=== PATIENT | female | born 1985 | race African-American/Black ===

== ENCOUNTER 2019-03-05 23:59 | Emergency (ER) | payer MEDICAID, OTHER ==
[~2019-03-05] VITALS: Ht 154.9 cm; Wt 52.2 kg
[2019-03-06 03:51] LABS: Basophils # (auto) 0.1 uL; Eosinophils # (auto) 0.2 uL; Hematocrit 32.1 % (36.0-46.0); Hemoglobin 10.6 g/dL (12.2-16.2); Lymphocytes % (auto) 38.1 % (10.0-50.0); Mean Corpuscular Hemoglobin 28.8 pg (28.0-32.0); Mean Corpuscular Hgb Conc. 32.9 g/dL (32.0-36.0); Mean Corpuscular Volume 87.5 fL (80.0-100.0); Monocytes # (auto) 0.5 uL; Monocytes % (auto) 9.7 % (0.0-12.0); Neutrophils # (auto) 2.5 uL; Neutrophils % (auto) 48.2 % (37.0-80.0); Platelet Count (auto) 377 10^3/uL (140-450); Red Blood Cells 3.67 10^6/uL (4.0-5.20); Red Cell Distribution Width 13.4 % (11.8-14.3); White Blood Cell 5.2 10^3/uL (4.4-10.8)
[2019-03-06 04:15] LABS: Albumin 2.8 g/dL (3.4-5.0); Anion Gap 8 (5-15); Blood Urea Nitrogen 6 mg/dL (7-18); Calcium 7.8 mg/dL (8.5-10.1); Carbon Dioxide 24 mmol/L (21-32); Chloride 107 mmol/L (98-107); Glucose 78 mg/dL (74-106); Magnesium 2.2 mg/dL (1.6-2.6); Potassium 3.2 mmol/L (3.5-5.1); Sodium 139 mmol/L (136-145)
[2019-03-06 04:17] LABS: INR 0.94 (0.9-1.15); Partial Thromboplastin Time 23.4 sec (23.64-32.05)
[2019-03-06 04:18] LABS: Amylase 84 U/L (25-115); BUN/Creatinine Ratio 11.5; GFR African American 174 mL/min; GFR Non-African American 143 mL/min; Lipase 58 U/L (73-393)
[2019-03-06 04:32] LABS: Alanine Aminotransferase 21 U/L (13-56); Alkaline Phosphatase 71 U/L (45-117); Aspartate Aminotransferase 12 U/L (15-37); Bilirubin, Total < 0.1 mg/dL (0.2-1.0); Total Protein 6.8 g/dL (6.4-8.2)
[2019-03-06 05:49] LABS: Urine Bacteria FEW /hpf (None Seen); Urine Blood Negative /uL (Negative); Urine Mucus FEW (None Seen); Urine Specific Gravity 1.048 (1.001-1.035); Urine WBC 9 /hpf (0 - 5)
[2019-03-06] MEDS ORDERED: ONDANSETRON HCL 4 MG/2 ML VIAL IV ONE (06:30)
[2019-03-06] MEDS ORDERED: SODIUM CHLORIDE 0.9% 1,000 ML IV ONE ×2 (06:30→07:30)
[2019-03-06 07:12] LABS: Amylase 74 U/L (25-115); Blood Alcohol < 3.0 mg/dL (0-5); Lipase 44 U/L (73-393)
[2019-03-06 07:13] LABS: Alcohol, Urine < 3.0 mg/dL (0-5); Amphetamine Screen, Urine NEGATIVE (NEGATIVE); Barbiturate Scree,Urine NEGATIVE (NEGATIVE); Benzodiazephine Screen, Urine NEGATIVE (NEGATIVE); Cannabinoid Screen, Urine NEGATIVE (NEGATIVE); Cocaine Screen, Urine NEGATIVE (NEGATIVE); Opiate Scree,Urine POSITIVE (NEGATIVE); Phencyclidine Screen, Urine NEGATIVE (NEGATIVE)
[2019-03-06 07:30] VITALS: BP 95/63
== END 2019-03-06 08:14 | disposition home or self-care (01) ==
LOC: ER 03-06 00:03
DX: O20.0 Threatened abortion (principal); O99.512 Diseases of the respiratory system complicating pregnancy, second trimester; O99.612 Diseases of the digestive system complicating pregnancy, second trimester; E86.0 Dehydration; Z3A.18 18 weeks gestation of pregnancy; Z87.19 Personal history of other diseases of the digestive system
CPT/HCPCS: 36415; 76805; 80053; 80307; 80320; 81001; 82150; 83690; 83735; 84702; 85025; 85610; 85730; 96361; 96374; 99284; J2405; J7030